=== PATIENT | female | born 2000 | race African-American/Black ===

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

== ENCOUNTER 2021-06-01 20:30 | Emergency (ER) | payer MEDICAID, OTHER ==
[~2021-06-01] VITALS: Ht 170.2 cm; Wt 55.0 kg
[2021-06-01 20:36] VITALS: BP 106/65
[2021-06-01] MEDS ORDERED: TETANUS, DIPHTHERIA, PERTUSSIS VAC/PF 0.5ML (>10YR OLD) IM ONE (23:45)
[2021-06-01] MEDS ORDERED: ACETAMINOPHEN 325MG TABLET PO ONE (23:45)
[2021-06-01] MEDS ORDERED: LIDOCAINE HCL/EPINEPHRINE 1%-EPI 1:100,000 20 ML VIAL INFIL ONE (23:45)
[2021-06-02] MEDS ORDERED: TOPUD MT (00:54)
[2021-06-02] MEDS ORDERED: BACITRACIN ZINC OINT UDPKT TOP ONE (01:00)
== END 2021-06-02 01:06 | disposition home or self-care (01) ==
LOC: ER 20:30
DX: S01.81XA Laceration without foreign body of other part of head, initial encounter (principal); S01.511A Laceration without foreign body of lip, initial encounter; S09.8XXA Other specified injuries of head, initial encounter; X58.XXXA Exposure to other specified factors, initial encounter; Y93.89 Activity, other specified; Y92.9 Unspecified place or not applicable
CPT/HCPCS: 12011; 81025; 90471; 90715; 99283; J3490